=== PATIENT | male | born 1955 | race Caucasian/White ===

== ENCOUNTER 2017-04-28 12:34 | Emergency (ER) | payer OTHER ==
[~2017-04-28] VITALS: Ht 185.4 cm; Wt 108.0 kg
[~2017-04-28 12:34] MED LIST: ASPI325T32 PO; CYCL5TAB PO; IMI100 PO; KLO1T PO; LOSA25TA21 PO; MELA1TAB11 PO; OMEP20CA11 PO; OXYC1TAB24 PO; PRAV10TA2 PO; PRE20 PO; SERT25TA6 PO
[2017-04-28 12:36] VITALS: BP 126/86; PULSE 84; RESP 16; O2SAT 97
--- NOTE | 2017-04-28 12:53 | ED.REPORT ---
HPI-Chest Pain 40 and Over Date of Service Apr 28, 2017 ED Provider: John Paul Decker DO A 62 year old male with a history of GERD, hypertension, asthma, ALFREDA on CPAP and hyperlipidemia presents to the ED with persistent shoulder pain that began 4 days ago. He rates his current pain as a 3/10. Patient has been running lately and the pain in his chest is not exacerbated by the exertion. The patient was reportedly drinking a beer and began to experience a burning sensation in his chest, similar to prior episodes of reflux. He also endorses right shoulder aching that does not exacerbate the pain. Sumatriptan has helped relieve the pain in his shoulder. Recent associated symptoms also include an episode of diarrhea(resolved), flatulence, dyspnea that has been chronic and nasal congestion. He denies any similar previous symptoms. The patient denies any melena, hematochezia, vomiting or cough. Nursing Notes Stated Complaint: CHEST PAIN Chief Complaint: Chest Pain Nursing Notes Reviewed: Yes Allergies: Coded Allergies: No Known Allergies (Unverified , 06/27/16) Scheduled Aspirin (Aspirin) 325 Mg Tablet 325 MG PO DAILY Losartan Potassium (Losartan Potassium) 25 Mg Tablet 25 MG PO DAILY Melatonin/Pyridoxine (Melatonin 3 mg Tablet) 1 Each Tablet 1 EACH PO HS Omeprazole (Omeprazole) 20 Mg Capsule.dr 20 MG PO BID Pravastatin (Pravastatin) 10 Mg Tablet 40 MG PO HS Prednisone (PredniSONE) 20 Mg Tablet 40 MG PO DAILY Sertraline HCl (Sertraline) 25 Mg Tablet 100 MG PO DAILY Sumatriptan (Imitrex) 100 Mg Tablet 100 MG PO prn oxyCODONE-Acetaminophen 5-325 mg (oxyCODONE-Acetaminophen 5-325 mg) 1 Each Tablet 1-2 TABLET PO PRN Scheduled PRN Clonazepam (Clonazepam) 1 Mg Tablet 1 MG PO BID PRN PRN For Anxiety Cyclobenzaprine (Cyclobenzaprine) 5 Mg Tablet 5 MG PO HS PRN PRN Spasm General Time Seen by MD: 12:53 Chief Complaint Chest pain Hx Obtained From: Patient Arrived By: Walk-in Sudden in Onset?: No Onset Occurred: 4 days ago Symptom Duration: Since onset Location: : Chest left: Chest right Quality: Aching, Painful Radiation: : Shoulder right Migration/Movement: Reports: None Severity: Current: Pain level 3 out of 10 Severity: Maximum: Moderate Associated with: Denies: Cough, non-productive Pertinent Negative: Pt denies other symptoms Risk Factors )( CAD Risk Stratification Family history Hyperlipidemia Hypertension Risk factors reviewed )( TAD Risk Stratification Risk factors reviewed )( PE Risk Stratification Risk factors reviewed HEART Score HEART for MACE: Low index of susp (0), Age 45 - 65 (1), 3+ CAD risk factors (2) , < or = to NL troponin (0) HEART for MACE Score: 0-3 (low risk 0.9%-1.7%) (3) Past Medical History Past Medical History Hypetension Asthma Sleep apnea on CPAP GERD Past Surgical History L forearm fx repair Hernia repair x2 Leg fracture repair Family History Hypertension DE Smoking History Never Smoker Social History Alcohol Use: 1-3 per week Drug Use: Denies drug use Other Social History: Good social support, , Local resident Ambulatory Status Independent Review of Systems Respiratory: Reports: Shortness of breath, Denies: Dyspnea on exertion, Non-productive cough Cardiovascular: Reports: Chest pain GI: Reports: Diarrhea, Denies: Hematemesis, Hematochezia, Melena, Vomiting Musculoskeletal: Reports: Joint pain (R shoulder pain) Complete sys rev & neg: except as marked. Physical Exam Initial Vital Signs Vital Signs (First) Date Time Temp Pulse Resp B/P Pulse Ox O2 Delivery O2 Flow Rate FiO2 04/28/17 12:36 36.4 84 16 126/86 97 Room Air Initial VS: Reviewed Head / Eyes: Atraumatic, Normocephalic, PERRL Neck: Supple, Non-tender, Full range of motion Extremities: Vascular intact, Neuro intact, No swelling, No tenderness Skin: Warm, Dry, No cyanosis Neurologic: Alert, Oriented, Nonfocal Psychiatric: Mood/affect normal, Behavior normal, Normal thought content General/Constitutional: Awake, Alert, No acute distress, Well appearing, Well developed Respiratory / Chest: Atraumatic, Breath sounds NL, Breath sounds = bilat, No respiratory distress Cardiovascular: Heart rate NL, Regular rhythm, Heart sounds NL Abdomen: Atraumatic, Soft, Non-tender Interpretation & Diagnostics Lab Results Interpretation Result Diagram: 04/28/17 1304 04/28/17 1304 Test 04/28/17 13:04 White Blood Count 5.2th/mm3 (3.8-10.1) Red Blood Count 4.86mil/mm3 (4.40-5.80) Hemoglobin 12.4g/dL (13.8-17.2) Hematocrit 38.4% (41.0-50.0) Mean Corpuscular Volume 79.0fL (81-100) Mean Corpuscular Hemoglobin 25.5pg (27.0-35.0) Mean Corpuscular Hemoglobin Concent 32.3% (32.0-37.0) Red Cell Distribution Width 17.1% (12.3-15.4) Platelet Count 295bil/L (150-400) Neutrophils (%) (Auto) 44.5% (40-74) Lymphocytes (%) (Auto) 34.3% (14-46) Monocytes (%) (Auto) 13.6% (4-12) Eosinophils (%) (Auto) 6.1% (0-5) Basophils (%) (Auto) 1.3% (0-3) D-Dimer < 0.50mg/L FEU (<0.50) Sodium Level 139mEq/L (134-144) Potassium Level 4.2mEq/L (3.5-5.2) Chloride Level 102mEq/L (97-108) Carbon Dioxide Level 25mmol/L (18-29) Blood Urea Nitrogen 12mg/dL (8-27) Creatinine 0.81mg/dL (0.76-1.27) Estimat Glomerular Filtration Rate 102mL/min (>59) Glucose Level 105mg/dL (60-99) Calcium Level 9.0mg/dL (8.5-10.1) Magnesium Level 2.1mg/dL (1.6-2.6) Total Bilirubin 0.2mg/dL (0.0-1.2) Aspartate Amino Transf (AST/SGOT) 22U/L (0-50) Alanine Aminotransferase (ALT/SGPT) 22U/L (0-44) Alkaline Phosphatase 74U/L (25-160) Troponin T < 0.010ug/L (0.0-0.011) Total Protein 7.2g/dL (6.4-8.4) Albumin 4.5g/dL (3.4-5.0) Hold Broussard Top Tube Received (Received) ECG Interpretation ECG Interpretation: Sinus Rhythm Rate 67 bpm LAD Abnormal R wave progression Time: 13:02 Interpreted by: ED physician Re-Eval/Medical Decision Med Decision/Clinical Course Heart score 3. After approximately 3 days of constant ongoing shoulder discomfort, patient's workup is unremarkable. EKG is normal. Road test failed to elicit symptoms. Discussed with the patient's admission versus discharge. Patient is agreeable to discharge. We did discuss at length signs and symptoms of acute DE, and the need to return to the ER immediately for any new or worsening symptoms that may suggest acute DE. Agrees to take aspirin daily. Agrees to follow up with his primary care doctor urgently. Return and follow-up precautions given. Time of Eval: 14:13 Patient Status: Condition improved Re-Evaluation/Progress Note: Patient condition is re-evaluated. Pain improved following treatment. Patient passes the road test. He is informed of his current results and the intended treatment plan. All of the patient's questions about his likely diagnosis and disposition are addressed. Patient is given strict return precautions. Counseled Regarding: Diagnosis, Lab results, Need for follow-up, When/why to return to ED Discharge & Departure Primary Impression: Chest pain Chest pain type: unspecified Qualified Code: R07.9 - Chest pain, unspecified Disposition: Home Discharge Condition All VS Reviewed: Yes Condition: Stable Patient Instructions: Chest Pain (ED) Additional Instructions: Thank you for trusting us with your care this morning. Your emergency department evaluation today including examination, lab work, EKG and chest X-ray are reassuring that there is no emergent cause for concern at this time and I believe that you pain is due to recent exertion and is likely musculoskeletal. However, a clear cause of your pain was not identified so I highly recommend that you schedule a follow-up appointment with your primary care physician tomorrow for a recheck and to schedule a cardiac stress test. Continue to take 1 full dose of Aspirin every day. If you begin to experience abdominal discomfort, take TUMS for relieve. Take 1-2 Tylenol or ibuprofen every 6-8 hours as needed for pain. Please return to the emergency department for any new or worsening conditions including any fevers, chills, nausea, vomiting, intense, crushing chest pain, shortness of breath, excessive sweating, lightheadedness, weakness or any other concerning symptoms. Referrals: ALLA ALLEN MD (PCP) Scribe Attestation Portions of this note were transcribed by Miguel Angel Silva. I, Dr. John Paul Archibald personally performed the history, physical exam and medical decision- making; I reviewed and confirmed the accuracy of the information in the transcribed note. copies to: ALLA ALLEN MD, Timothy S DO Apr 28, 2017 12:53 MIGUEL ANGEL SILVA Apr 28, 2017 13:12
[2017-04-28] MEDS ORDERED: LidocaineVisc 2%:Antacid 1:1 10 mL Syringe PO ONE (13:10)
[2017-04-28] MEDS ORDERED: Ondansetron 2 mg/mL 2 mL Inj IVPUSH PRN (13:10)
[2017-04-28 13:13] LABS: BASOPHILS % (AUTO) 1.3 % (0-3); EOSINOPHILS % (AUTO) 6.1 % (0-5); MONOCYTES % (AUTO) 13.6 % (4-12); Mean Corpuscular Hemoglobin 25.5 pg (27.0-35.0); NEUTROPHILS % (AUTO) 44.5 % (40-74); Platelet Count 295 bil/L (150-400)
--- NOTE | 2017-04-28 13:25 | DRSVH ---
PROCEDURE: X-RAY CHEST ONE VIEW, PORTABLE ([id number]) INDICATIONS: 62 year-old male with chest pain for several weeks. TECHNIQUE: One view of the chest was acquired. COMPARISON: [facility], CR, XR CHEST 2VW, 08/05/2016, 10:14. FINDINGS: Surgical changes and devices: None. Lungs and pleura: No pleural effusions or pneumothorax. Lungs are clear. Mediastinum: Mediastinal contours appear normal. Heart size is normal. Bones and chest wall: No suspicious bony lesions. Overlying soft tissues appear unremarkable. IMPRESSION: No acute cardiopulmonary disease. Dictated by: Cruz Ewing M.D. on 04/28/2017 at 13:24 Approved by: Cruz Ewing M.D. on 04/28/2017 at 13:24
[2017-04-28 13:40] LABS: TROPONIN T < 0.010 ug/L (0.0-0.011)
[2017-04-28 13:44] LABS: Magnesium 2.1 mg/dL (1.6-2.6)
[2017-04-28 15:05] VITALS: BP 131/76; PULSE 69; O2SAT 97
== END 2017-04-28 15:15 | disposition home or self-care (01) ==
LOC: SED 12:34
DX: R07.9 Chest pain, unspecified (principal); M25.511 Pain in right shoulder; I10 Essential (primary) hypertension; J45.909 Unspecified asthma, uncomplicated; G47.33 Obstructive sleep apnea (adult) (pediatric); K21.9 Gastro-esophageal reflux disease without esophagitis; E78.00 Pure hypercholesterolemia, unspecified; Z79.82 Long term (current) use of aspirin; Z79.52 Long term (current) use of systemic steroids